=== PATIENT | female | born 2000 | race Hispanic/Latino ===

== ENCOUNTER 2023-02-02 15:48 | Emergency (ER) | payer MEDICAID ==
[~2023-02-02] VITALS: Ht 157.5 cm; Wt 68.0 kg
[2023-02-02 15:52] VITALS: BP 115/65
[2023-02-02 17:39] LABS: BASOPHILS % (AUTO) 0.2 % (0.0-5.0); EOSINOPHILS % (AUTO) 0.5 % (0.0-8.0); HEMATOCRIT 42.5 % (36-48); LYMPHOCYTES % (AUTO) 17.3 % (21.0-51.0); MEAN CORPUSCULAR HEMOGLOBIN 31.3 pg (27.0-33.0); MEAN CORPUSCULAR HGB CONC 34.4 g/dL (32.0-36.0); MEAN CORPUSCULAR VOLUME 91.2 fL (79-99); NEUTROPHILS % (AUTO) 73.6 % (40.0-77.0); PLATELET COUNT (AUTO) 218 K/uL (130-400); RED BLOOD CELL COUNT(AUTO) 4.66 MIL/uL (4.00-5.50); RED CELL DISTRIBUTION WIDTH 12.1 % (11.0-15.5); WHITE BLOOD COUNT (AUTO) 12.3 K/uL (4.8-10.8)
[2023-02-02 17:51] LABS: CREATININE 0.6 mg/dL (0.5-1.5); POTASSIUM 3.9 mmol/L (3.5-5.1)
[2023-02-02 18:17] LABS: TOTAL PROTEIN, SERUM 7.4 g/dL (6.0-8.3)
[2023-02-02 20:19] LABS: APPEARANCE,URINE CLEAR (CLEAR); BILIRUBIN,URINE NEGATIVE (NEGATIVE); COLOR,URINE LIGHT-YELLOW (YELLOW); GLUCOSE, URINE (UA) NEGATIVE (NEGATIVE); KETONES,URINE 5 mg/dL (NEGATIVE); LEUKOCYTE ESTERASE ,URINE NEGATIVE Leu/uL (NEGATIVE); NITRATE,URINE NEGATIVE (NEGATIVE); OCCULT BLOOD,URINE NEGATIVE (NEGATIVE); PROTEIN,URINE NEGATIVE (NEGATIVE); UROBILINOGEN,URINE 0.2 mg/dL (0.2-1.0)
[2023-02-02 20:23] LABS: BACTERIA,URINE RARE /HPF (None Seen); MUCUS,URINE RARE LPF (None Seen); RBC,URINE 0-1 /HPF (0-1); SQUAMOUS EPITHELIAL CELL,UR RARE /HPF (0-2); WBC,URINE 0-1 /HPF (0-1)
== END 2023-02-02 21:03 | disposition home or self-care (01) ==
LOC: EDH 15:48
DX: O20.0 Threatened abortion (principal); O26.891 Other specified pregnancy related conditions, first trimester; R10.2 Pelvic and perineal pain; Z3A.01 Less than 8 weeks gestation of pregnancy
CPT/HCPCS: 36415; 76801; 80053; 81001; 84702; 85025

== ENCOUNTER 2023-03-19 12:52 | Emergency (ER) | payer MEDICAID ==
[~2023-03-19] VITALS: Ht 157.5 cm; Wt 70.3 kg
[2023-03-19] MEDS ORDERED: 0.9%NACL 1000ML 1,000 ML IV ONE (13:30)
[2023-03-19 13:32] LABS: BASOPHILS # (AUTO) 0.03 K/uL (0.00-0.20); BASOPHILS % (AUTO) 0.2 % (0.0-5.0); EOSINOPHILS # (AUTO) 0.02 K/uL (0.00-0.70); EOSINOPHILS % (AUTO) 0.1 % (0.0-8.0); HEMATOCRIT 37.3 % (36-48); IMMATURE GRANULOCYTE ABSOLUTE 0.12 K/uL (0-1); LYMPHOCYTES # (AUTO) 1.3 K/uL (1.0-4.8); LYMPHOCYTES % (AUTO) 7.4 % (21.0-51.0); MEAN CORPUSCULAR HGB CONC 35.4 g/dL (32.0-36.0); MEAN CORPUSCULAR VOLUME 90.3 fL (79-99); MONOCYTES # (AUTO) 0.9 K/uL (0.1-1.0); MONOCYTES % (AUTO) 4.8 % (3.0-13.0); NEUTROPHILS # (AUTO) 15.4 K/uL (1.8-7.7); NEUTROPHILS % (AUTO) 86.8 % (40.0-77.0); PLATELET COUNT (AUTO) 211 K/uL (130-400); RED BLOOD CELL COUNT(AUTO) 4.13 MIL/uL (4.00-5.50); RED CELL DISTRIBUTION WIDTH 12.2 % (11.0-15.5); WHITE BLOOD COUNT (AUTO) 17.8 K/uL (4.8-10.8)
[2023-03-19 13:38] LABS: CREATININE 0.6 mg/dL (0.5-1.5); POTASSIUM 3.9 mmol/L (3.5-5.1)
[2023-03-19 14:05] LABS: BILIRUBIN,TOTAL 0.4 mg/dL (0.2-1.0); TOTAL PROTEIN, SERUM 7.2 g/dL (6.0-8.3)
[2023-03-19 14:30] LABS: RAPID GROUP A STREP NEGATIVE (NEGATIVE)
[2023-03-19 14:31] LABS: SARS-CoV-2, RNA, NAAT NEGATIVE SARS CoV-2 (NEGATIVE)
[2023-03-19 14:35] LABS: INFLUENZA TYPE A Negative For Type A (NEGATIVE); INFLUENZA TYPE B Negative For Type B (NEGATIVE)
[2023-03-19 14:54] LABS: APPEARANCE,URINE CLEAR (CLEAR); BILIRUBIN,URINE NEGATIVE (NEGATIVE); COLOR,URINE LIGHT-YELLOW (YELLOW); GLUCOSE, URINE (UA) NEGATIVE (NEGATIVE); KETONES,URINE 40 mg/dL (NEGATIVE); LEUKOCYTE ESTERASE ,URINE NEGATIVE Leu/uL (NEGATIVE); NITRATE,URINE NEGATIVE (NEGATIVE); OCCULT BLOOD,URINE LARGE (NEGATIVE); PROTEIN,URINE NEGATIVE (NEGATIVE); UROBILINOGEN,URINE 0.2 mg/dL (0.2-1.0)
[2023-03-19 14:55] LABS: ADD UA MICROSCOPIC YES
[2023-03-19 14:59] LABS: BACTERIA,URINE RARE /HPF (None Seen); MUCUS,URINE RARE LPF (None Seen); NON-SQUAMOUS EPITHELIAL CELL <1 /HPF (0-2); SQUAMOUS EPITHELIAL CELL,UR FEW /HPF (0-2)
[2023-03-19 15:57] VITALS: BP 110/78; PULSE 97; RESP 18; O2SAT 100
== END 2023-03-19 16:06 | disposition home or self-care (01) ==
LOC: EDH 12:52
DX: O20.0 Threatened abortion (principal); Z3A.12 12 weeks gestation of pregnancy; Z88.1 Allergy status to other antibiotic agents; Z20.822 Contact with and (suspected) exposure to COVID-19
CPT/HCPCS: 99284; 96360; 76801; 87635; 80053; 84702; 85025; 86900; 86901; 87880; 87804 ×2; 81001; 36415; C9803; J7030

== ENCOUNTER 2023-06-08 17:44 | Emergency (ER) | payer MEDICAID ==
[~2023-06-08] VITALS: Ht 157.5 cm; Wt 70.3 kg
[2023-06-08 17:54] VITALS: BP 133/78; PULSE 81; RESP 16; O2SAT 100
[2023-06-08 18:14] LABS: BASOPHILS # (AUTO) 0.03 K/uL (0.00-0.20); BASOPHILS % (AUTO) 0.3 % (0.0-5.0); EOSINOPHILS # (AUTO) 0.12 K/uL (0.00-0.70); EOSINOPHILS % (AUTO) 1.2 % (0.0-8.0); IMMATURE GRANULOCYTE ABSOLUTE 0.02 K/uL (0-1); LYMPHOCYTES # (AUTO) 3.2 K/uL (1.0-4.8); LYMPHOCYTES % (AUTO) 32.6 % (21.0-51.0); MEAN CORPUSCULAR HEMOGLOBIN 29.6 pg (27.0-33.0); MEAN CORPUSCULAR HGB CONC 33.6 g/dL (32.0-36.0); MONOCYTES # (AUTO) 0.8 K/uL (0.1-1.0); MONOCYTES % (AUTO) 8.4 % (3.0-13.0); NEUTROPHILS # (AUTO) 5.6 K/uL (1.8-7.7); NEUTROPHILS % (AUTO) 57.3 % (40.0-77.0); PLATELET COUNT (AUTO) 276 K/uL (130-400); RED CELL DISTRIBUTION WIDTH 12.1 % (11.0-15.5); WHITE BLOOD COUNT (AUTO) 9.8 K/uL (4.8-10.8)
[2023-06-08 18:16] LABS: APPEARANCE,URINE CLEAR (CLEAR); BILIRUBIN,URINE NEGATIVE (NEGATIVE); COLOR,URINE COLORLESS (YELLOW); GLUCOSE, URINE (UA) NEGATIVE (NEGATIVE); KETONES,URINE NEGATIVE (NEGATIVE); LEUKOCYTE ESTERASE ,URINE NEGATIVE Leu/uL (NEGATIVE); NITRATE,URINE NEGATIVE (NEGATIVE); OCCULT BLOOD,URINE NEGATIVE (NEGATIVE); PH,URINE 5.5 (5.0-8.0); PROTEIN,URINE NEGATIVE (NEGATIVE); UROBILINOGEN,URINE 0.2 mg/dL (0.2-1.0)
[2023-06-08 18:23] LABS: CREATININE 0.7 mg/dL (0.5-1.5); POTASSIUM 3.7 mmol/L (3.5-5.1)
[2023-06-08 18:24] LABS: ADD UA MICROSCOPIC YES
[2023-06-08 18:27] LABS: BACTERIA,URINE FEW /HPF (None Seen); RBC,URINE 0-1 /HPF (0-1); SQUAMOUS EPITHELIAL CELL,UR RARE /HPF (0-2); WBC,URINE 0-1 /HPF (0-1); YEAST,URINE BUDDING FEW /HPF (None Seen)
[2023-06-08 18:50] LABS: ALBUMIN 4.2 g/dL (3.5-5.0); BILIRUBIN,TOTAL 0.3 mg/dL (0.2-1.0); TOTAL PROTEIN, SERUM 8.3 g/dL (6.0-8.3)
[2023-06-08] MEDS ORDERED: POLY17PO4 PO (19:50)
== END 2023-06-08 20:15 | disposition home or self-care (01) ==
LOC: EDH 17:44
DX: O26.891 Other specified pregnancy related conditions, first trimester (principal); K59.00 Constipation, unspecified; R10.12 Left upper quadrant pain; Z3A.01 Less than 8 weeks gestation of pregnancy; Z88.1 Allergy status to other antibiotic agents
CPT/HCPCS: 36415; 76817; 80053; 81001; 84702; 85025

== ENCOUNTER 2024-07-19 00:30 | Emergency (ER) | payer MEDICAID ==
[~2024-07-19] VITALS: Ht 157.5 cm; Wt 73.5 kg
[~2024-07-19 00:30] MED LIST: POLY17PO4 PO
[2024-07-19 00:55] LABS: RAPID GROUP A STREP negative (NEGATIVE)
[2024-07-19 01:16] LABS: COVID19 (SARS ANTIGEN RAPID) PRESUMPTIVE NEGATIVE (NEGATIVE)
[2024-07-19 01:17] LABS: INFLUENZA TYPE A Negative For Type A (NEGATIVE); INFLUENZA TYPE B Negative For Type B (NEGATIVE)
--- NOTE | 2024-07-19 02:16 | ERN ---
ED Note History of Present Illness Stated Complaint: FEVER Chief Complaint: Fever Time Seen by MD: 01:02 Allergies: Coded Allergies: ceftriaxone (Unverified Allergy, Unknown, 03/19/23) Home Meds Active Scripts Polyethylene Glycol 3350 (Miralax) 17 Gram Powd.pack, 17 GM PO DAILY, #14 PACK Prov:ERICK LORENZO V [employer] 06/08/23 Past Medical History Dictation 23-year-old female with past medical history of recent childbirth presents with concerns for upper respiratory type symptoms and fever x2 days in duration. Patient reports dry cough, nasal congestion, fever. Patient denies syncope, p resyncope, focal neurological deficits, abdominal pain, nausea, vomiting Past Medical History: No Pertinent History Surgical History: Social History: Negative, Lives with family LMP: Jul 19, 2024 : 2 Para: 0 Aborts: 1 Review of System Dictation See HPI Initial Vital Sign VS Vital Signs Date Time Temp Pulse Resp B/P (MAP) Pulse Ox O2 Delivery O2 Flow Rate FiO2 07/19/24 00:32 99.1 100 18 120/86 99 Room Air 0 07/19/24 01:10 21 Physical Exam Dictation Well-appearing, no acute distress, afebrile, lungs clear to auscultation, symmetrical breath sounds, abdomen is soft, nontender, non peritoneal Results (Laboratory/Radiology) Laboratory/Radiology Laboratory Tests Test 07/19/24 00:38 Influenza Type A Antigen Negative For Type A Influenza Type B Antigen Negative For Type B SARS-CoV-2 Antigen (Rapid) PRESUMPTIVE NEGATIVE Group A Streptococcus Rapid negative (NEGATIVE) ED Course ED Course Orders Procedure Category Date Status Time Covid19 (Sars Antigen LAB 07/19/24 Complete Rapid) 00:36 Influenza Type A & B, LAB 07/19/24 Complete Rapid 00:36 Rapid (Group A Strep) LAB 07/19/24 Complete 00:36 Vital Signs Date Time Temp Pulse Resp B/P (MAP) Pulse Ox O2 Delivery O2 Flow Rate FiO2 07/19/24 01:10 99.0 82 16 116/71 99 Room Air* 0 21 07/19/24 00:32 99.1 100 18 120/86 99 Room Air 0 Medical Decision Making MDM ddx: Flu versus COVID versus RSV Interpretation discussion by me unless otherwise stated Rapid flu negative. Rapid COVID negative. Patient's physical exam consistent with viral illness. Patient already take ibuprofen prior to arriving here in the emergency department. Patient is afebrile and well-appearing. Discussed ED workup with patient. Constipation that viral illnesses for the last approximately 7-10 days. Return precautions given. Invited and answered all questions prior to discharge. Recommend close primary care follow up. Patient agreeable DX & DISP Disposition: Discharge Departure Impression: Primary Impression: Acute febrile illness Additional Impressions: Acute URI, Acute viral syndrome Condition: Stable Additional Instructions: Please follow up with primary care physician next available appointment. Please return to emergency department immediately if you can not breathe, have difficulty breathing, productive cough, develop nausea, vomiting, sweating, abdominal pain, change in mental status, chest pain. Please control with temperature with Tylenol and ibuprofen and drink lots of fluids. Referrals: SELF,REFERRAL (PCP) ANCELMO ANTONIO DO Jul 19, 2024 02:16
[2024-07-19 02:34] VITALS: BP 119/72; PULSE 80; RESP 16; TEMP 98.9; O2SAT 99
[2024-07-20] MEDS ORDERED: IBUP-2070 PO (11:23)
[2024-07-20] MEDS ORDERED: OSEL75 PO (11:23)
[2024-07-20] MEDS ORDERED: BENZ200C53 PO (11:23)
[2024-07-20] MEDS ORDERED: LORA-726 PO (11:23)
== END 2024-07-19 02:34 | disposition home or self-care (01) ==
LOC: EDH 00:30
DX: J06.9 Acute upper respiratory infection, unspecified (principal); B97.89 Other viral agents as the cause of diseases classified elsewhere; Z88.1 Allergy status to other antibiotic agents; Z20.822 Contact with and (suspected) exposure to COVID-19; Z79.899 Other long term (current) drug therapy
CPT/HCPCS: 87426; 87804; 87880; 99283